=== PATIENT | male | born 1960 ===

== ENCOUNTER 2025-02-16 19:09 | Outpatient (BNV) | payer MEDICARE, SELFPAY | END 2025-02-20 19:43 | PROVIDERS: Admitting Provider Psychiatry & Neurology Psychiatry; Visit Provider Radiology Neuroradiology | DX: M25.522 Pain in left elbow (principal); M79.632 Pain in left forearm; W19.XXXA Unspecified fall, initial encounter | CPT/HCPCS: 73070; 73090 ==

== ENCOUNTER 2025-02-16 19:09 | Outpatient (BNV) | payer MEDICARE, SELFPAY | END 2025-02-23 14:12 | PROVIDERS: Admitting Provider Psychiatry & Neurology Psychiatry; Visit Provider Radiology Vascular & Interventional Radiology | DX: S99.922A Unspecified injury of left foot, initial encounter (principal); M79.672 Pain in left foot | CPT/HCPCS: 73630 ==

== ENCOUNTER 2025-02-16 19:09 | Inpatient (IN) | payer OTHER, SELFPAY ==
--- NOTE | ~2025-02-16 | XR_ITS ---
CLINICAL HISTORY: Trauma and pain 3 view left foot Comparison: None Findings: No acute fracture or dislocation is identified. Incidental note is made of an os peroneum. Soft tissue structures appear intact. IMPRESSION: No acute osseous abnormality is identified. This document has been electronically signed by: Michelle Burns on 02/25/2025 08:24:25
--- NOTE | ~2025-02-16 | XR_ITS ---
CLINICAL HISTORY: PAIN LEFT KNEE Left knee, 2 views COMPARISON: None FINDINGS: No acute fracture. No dislocation. No effusion. Upper patellar enthesophyte. Unremarkable soft tissues. IMPRESSION: No acute findings. This document has been electronically signed by: Erlin River MD on 02/21/2025 04:06:00
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
--- NOTE | ~2025-02-16 | XR_ITS ---
CLINICAL HISTORY: ulnar fx, tranfer pt, no records --- Additional Notes or Special Instructions: to b e done in AM 3 view left elbow Comparison: None Findings: Mid to distal left ulnar diaphyseal fracture again noted. No significant arthritic change or erosions. No joint effusion. No radiopaque foreign body. IMPRESSION: Mid to distal left ulnar diaphyseal fracture noted. No elbow joint effusion or additional fracture. This document has been electronically signed by: Eleazar Glynn MD on 02/17/2025 08:07:09
--- NOTE | ~2025-02-16 | XR_ITS ---
CLINICAL HISTORY: ulnar fx, no records, transfer pt --- Additional Notes or Special Instructions: to be done in AM 2 view left forearm Comparison: None Findings: Minimally displaced, minimally comminuted mid to distal left ulnar fracture. No significant arthritic change. No radiopaque foreign body. IMPRESSION: Minimally displaced left ulnar fracture. This document has been electronically signed by: Eleazar Glynn MD on 02/17/2025 08:04:30
--- NOTE | ~2025-02-16 | XR_ITS ---
CLINICAL HISTORY: s p fall pt has current cast 3 view left elbow Comparison: X-rays of the left forearm from 02/17/2025 Findings: Redemonstration ulna mid diaphysis fracture in the field of view. Effusion imaged elbow is nonspecific and partly obscured by cast artifact. No dislocation of the imaged left elbow. No displaced radius fracture in the field of view. IMPRESSION: 1. No bony bridging callus of the known ulnar fracture as of yet. 2. No dislocation of the imaged elbow, with effusion present This document has been electronically signed by: Temo Guadarrama MD on 02/20/2025 21:33:59
--- NOTE | ~2025-02-16 | XR_ITS ---
CLINICAL HISTORY: s p fall cast in place 2 view left forearm Comparison: X-rays of the left forearm from 02/17/2025 Findings: No significant change in ulna diaphysis fracture and/or alignment. No dislocation of the imaged wrist or imaged elbow, with mild osteoarthritis present. Soft tissue detail of the additional bone detail obscured by plaster cast artifacts. IMPRESSION: 1. No significant change in ulna diaphysis fracture compared to 02/17/2025. 2. No dislocation of the imaged wrist or imaged elbow. This document has been electronically signed by: Temo Guadarrama MD on 02/20/2025 21:34:55
--- NOTE | ~2025-02-16 | XR_ITS ---
CLINICAL HISTORY: PAIN FEMUR Left Femur, 2 views, 2 images COMPARISON: None FINDINGS: No acute fracture. No dislocation. Unremarkable soft tissues. IMPRESSION: No acute findings. This document has been electronically signed by: Erlin River MD on 02/21/2025 04:07:49
[2025-02-16 19:34] VITALS: BP 129/78; PULSE 88; RESP 14; TEMP 36.5; O2SAT 99
[2025-02-16 20:00] VITALS: BP 129/78; PULSE 88; RESP 18; TEMP 36.5; O2SAT 99
[2025-02-16 20:07] VITALS: BMI 21.9
[2025-02-16] MEDS: Divalproex Sodium ER 500 MG TAB.ER.24H 1500 MG PO (21:08)
[2025-02-16] MEDS: buPROPion HCL 100 MG TABLET PO (21:08)
[2025-02-16] MEDS: Docusate Sodium 100 MG CAPSULE PO (21:08)
--- NOTE | 2025-02-17 01:22 | P.EN_ITS ---
Event Note Date of Service: 02/17/25 Event Note: Patient is a 64-year-old male admitted to adult psych, hospitalist consult placed for medical evaluation. Patient was sleeping and nursing staff requested that patient be allowed to sleep and not woken up for consult. They did share photos of his left forearm and reports that he has a nondisplaced left ulnar fracture however the x-ray was not included in his transfer paperwork. There is significant swelling in the medial aspect of the left forearm. We will order x- ray of left elbow and left forearm for tomorrow morning for confirmation that this is truly nondisplaced and there are no additional fractures. The patient has a splint, no cast. Remainder of consultation unable to be performed at this time Time Spent With Patient Time: Total time managing care of this patient today ____ minutes.
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
[2025-02-17 07:35] VITALS: BP 146/84; PULSE 84; RESP 18; TEMP 36.4; O2SAT 98
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
[2025-02-17] MEDS: hydroCHLOROthiazide 12.5 MG TABLET PO (09:34)
[2025-02-17] MEDS: buPROPion HCL 100 MG TABLET PO ×2 (09:35→21:02)
[2025-02-17] MEDS: Cholecalciferol (Vitamin D3) 25 MCG TABLET 50 MCG PO (09:35)
[2025-02-17] MEDS: amLODIPine Besylate 5 MG TABLET PO (09:35)
[2025-02-17] MEDS: Multivitamin TABLET 1 TAB PO (09:35)
[2025-02-17] MEDS: Benztropine Mesylate 0.5 MG TABLET PO (09:35)
[2025-02-17] MEDS: Docusate Sodium 100 MG CAPSULE PO ×2 (09:35→21:02)
[2025-02-17] MEDS: metFORMIN HCl 500 MG TABLET PO ×2 (09:36→17:09)
[2025-02-17 09:39] VITALS: BP 164/74; PULSE 85; RESP 16; TEMP 36.6; O2SAT 100
[2025-02-17] MEDS: Acetaminophen 325 MG TABLET 650 MG PO ×2 (09:49→21:14)
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
[2025-02-17] MEDS: traMADoL HCL 50 MG TABLET PO ×2 (14:40→21:02)
[2025-02-17 20:04] VITALS: BP 132/65; PULSE 82; RESP 18; TEMP 37.1; O2SAT 97
[2025-02-17] MEDS: Divalproex Sodium ER 500 MG TAB.ER.24H 1500 MG PO (21:02)
[2025-02-17] MEDS: traZODone HCL 50 MG TABLET PO (21:15)
[2025-02-18 07:47] LABS: Glucose, Whole Blood 98 mg/dL (60-115)
[2025-02-18 08:00] VITALS: BP 132/65; PULSE 83; RESP 14; TEMP 36.9; O2SAT 98
[2025-02-18] MEDS: traMADoL HCL 50 MG TABLET PO (08:42)
[2025-02-18] MEDS: Multivitamin TABLET 1 TAB PO (08:43)
[2025-02-18] MEDS: hydroCHLOROthiazide 12.5 MG TABLET PO (08:43)
[2025-02-18] MEDS: buPROPion HCL 100 MG TABLET PO ×2 (08:43→20:21)
[2025-02-18] MEDS: Benztropine Mesylate 0.5 MG TABLET PO (08:43)
[2025-02-18] MEDS: Cholecalciferol (Vitamin D3) 25 MCG TABLET 50 MCG PO (08:43)
[2025-02-18] MEDS: Docusate Sodium 100 MG CAPSULE PO ×2 (08:43→20:21)
[2025-02-18] MEDS: metFORMIN HCl 500 MG TABLET PO ×2 (08:43→18:35)
[2025-02-18] MEDS: amLODIPine Besylate 5 MG TABLET PO (08:43)
[2025-02-18 12:15] VITALS: BP 116/71; PULSE 103; RESP 15; O2SAT 98
--- NOTE | 2025-02-18 12:32 | PC.NURSE ---
Doug Mon had a fall at 1215. When he was trying to sit he slid to the floor and missed the desk chair. He said he is unhurt from the fall, no head strike. We placed him on 1:1. Dr Mon and Babar CHOWDARY informed.
--- NOTE | 2025-02-18 12:38 | PC.NURSE ---
Pt was seen by PT yesterday and educated on the use of a pao walker. However, per PT there is no pao walker available in hospital for patient use.
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
--- NOTE | 2025-02-18 13:08 | P.EN_ITS ---
Event Note Date of Service: 02/18/25 Event Note: Pt admitted to [facility] unit with falling room witnessed by his roommate. Pt was attempting to sit in his chair to eat his lunch when he missed the seat, and slid to the floor, landing on right side. Denies head strike which was corroborated by roommate. Pt denies any significant musculoskeletal pain above baseline. Denies hip, knee, or leg pain. No headache or acute vision changes. Physical exam benign without any perceived tenderness to hips, knees, or shoulders bilaterally. Pt deconditioned and with generalized weakness, but strength appears preserved and similar to prior examination. No reduced ROM of hips or knees bilaterally. Pt has already been seen and evaluated by Physical therapy who have pt use pao walker while on the unit which has been ordered and hopefully will arrived sometime earlier in the next week. Pt currently on one -to-one. Given benign physical examination and ROS, no imaging or additional workup indicated at this time. Time Spent With Patient Time: Total time managing care of this patient today ____ minutes.
[2025-02-18] MEDS: traMADoL HCL 50 MG TABLET 75 MG PO (15:30)
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
[2025-02-18 20:00] VITALS: BP 129/65; PULSE 83; RESP 16; TEMP 36.9; O2SAT 97
[2025-02-18] MEDS: Divalproex Sodium ER 500 MG TAB.ER.24H 1500 MG PO (20:21)
[2025-02-19 07:40] VITALS: BP 156/91; PULSE 89; RESP 14; TEMP 36.6; O2SAT 99
[2025-02-19 07:43] LABS: Glucose, Whole Blood 91 mg/dL (60-115)
[2025-02-19 07:53] LABS: Estimated Average Glucose 123 mg/dL; Hemoglobin A1c % 5.9 % (<6.0); Total Hemoglobin (HGBA1C) 2668.7055 umol/L
[2025-02-19 08:05] LABS: Cholesterol 127 mg/dL (<200); Creatinine Clr Calc Pharmacy 95.1; Estimated Glomerular Filt Rate > 60; HDL Cholesterol 46 mg/dL (>40); LDL Cholesterol Calculated 68 mg/dL (<100); Triglycerides 66 mg/dL (<150)
[2025-02-19 08:20] LABS: Free T4 (Free Thyroxine) 1.14 ng/dL (0.71-1.85); Thyroid Stimulating Hormone 1.64 uIU/mL (0.32-4.0)
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
[2025-02-19 08:33] LABS: Folate 6.4 ng/mL (> or = 4.0); Vitamin B12 519 pg/mL (200-900)
[2025-02-19] MEDS: traMADoL HCL 50 MG TABLET 75 MG PO ×3 (08:53→21:02)
[2025-02-19] MEDS: metFORMIN HCl 500 MG TABLET PO ×2 (08:54→17:02)
[2025-02-19] MEDS: Docusate Sodium 100 MG CAPSULE PO ×2 (08:55→20:42)
[2025-02-19] MEDS: amLODIPine Besylate 5 MG TABLET PO (08:55)
[2025-02-19] MEDS: Cholecalciferol (Vitamin D3) 25 MCG TABLET 50 MCG PO (08:55)
[2025-02-19] MEDS: Benztropine Mesylate 0.5 MG TABLET PO (08:55)
[2025-02-19] MEDS: Multivitamin TABLET 1 TAB PO (08:55)
[2025-02-19] MEDS: buPROPion HCL 100 MG TABLET PO ×2 (08:55→20:42)
[2025-02-19 08:56] VITALS: BP 150/90
[2025-02-19] MEDS: hydroCHLOROthiazide 12.5 MG TABLET PO (08:56)
--- NOTE | 2025-02-19 10:18 | PC.NURSE ---
Per [facility] worker Ping flannery received his prolixin Dec on 02/02/25 from his nurse ( TAYLOR) at [facility]. The [facility] phone number is [phone]
--- NOTE | 2025-02-19 10:41 | HE.PHANOTE ---
RE: LAST DOSE OF PROLIXIN PER NURSE FERDINAND ARREAGA IN M3...Per Doug [facility]'s [facility] worker Ping flannery received his prolixin Dec on 01/2325 from his nurse ( TAYLOR) at [facility]. The [facility] phone number is [phone].
--- NOTE | 2025-02-19 13:54 | HO.PSYCHPN ---
Subjective Subjective Date of Service: 02/19/25 Reason For Visit: Unspec schizophrenia, unspec cocaine related d/o Interim History: calm, cooperative, awake, alert. pleasant. denies any Sx. denies SI/HI/AVH. some pain, arm casted this morning by ortho. per staff, 1:1 due to fall risk. denies dep/anx/SI/HI. fell yesterday. pain 1-2. Mental Status Exam Mental Status Exam Narrative: in bed, did not get up. cooperative. no PMA/PMR. speech nml rate, amount, loudness, latency. decreased prosody. thoughts linear and logical. affect constricted, normo-intense, non-labile. mood OK. no SI/SIBI/HI/AVH. Diagnostics Vital Signs (24Hr): Vital Signs - 24 hr 02/18/25 20:00 02/19/25 07:40 02/19/25 08:56 Temperature 98.4 F 97.9 F Pulse Rate 83 89 Respiratory Rate 16 14 Blood Pressure 129/65 156/91 H 150/90 H Pulse Oximetry 97 99 Oxygen Delivery Method Room Air Room Air BMI result Body Mass Index 21.9 Labs 02/19/25 07:33 Labs: Laboratory Results - last 48 hr 02/18/25 02/19/25 02/19/25 07:43 07:29 07:33 Creatinine 0.79 Estim Creat Clear Calc 95.1 Estimated GFR > 60 POC Glucose 98 91 Estimat Average Glucose 123 Hemoglobin A1c % 5.9 Triglycerides 66 Cholesterol 127 LDL Cholesterol, Calc 68 HDL Cholesterol 46 Vitamin B12 519 Folate 6.4 TSH 1.64 Free T4 1.14 Medications Medications Current Medications Acetaminophen (Acetaminophen 325 Mg Tablet) 650 mg PO Q6H PRN PRN Reason: Headache/Pain, Scale 1-10 Last Admin: 02/17/25 21:14 Dose: 650 mg Al Hydroxide/Mg Hydroxide (Magnesium Hydrox/Alum Hydrox 30 Ml Oral.Susp) 30 ml PO Q6H PRN PRN Reason: Heartburn/Nausea Amlodipine Besylate (Amlodipine Besylate 5 Mg Tablet) 5 mg PO DAILY [facility]; Protocol Last Admin: 02/19/25 08:55 Dose: 5 mg Benztropine Mesylate (Benztropine Mesylate 0.5 Mg Tablet) 0.5 mg PO DAILY [facility] Last Admin: 06/09/25 08:55 Dose: 0.5 mg Bupropion HCl (Bupropion Hcl 100 Mg Tablet) 100 mg PO BID [facility] Last Admin: 02/19/25 08:55 Dose: 100 mg Divalproex Sodium (Divalproex Sodium Er 500 Mg Tab.Er.24h) 1,500 mg PO BEDTIME [facility] Last Admin: 02/18/25 20:21 Dose: 1,500 mg Docusate Sodium (Docusate Sodium 100 Mg Capsule) 100 mg PO BID [facility] Last Admin: 02/19/25 08:55 Dose: 100 mg Fluphenazine Decanoate (Fluphenazine Decanoate 25 Mg/Ml 5 Ml Vial) 125 mg IM Q21D [facility] Hydrochlorothiazide (Hydrochlorothiazide 12.5 Mg Tablet) 12.5 mg PO DAILY [facility]; Protocol Last Admin: 02/19/25 08:56 Dose: 12.5 mg Hydroxyzine HCl (Hydroxyzine Hcl 25 Mg Tablet) 25 mg PO Q6H PRN PRN Reason: mild anxiety Magnesium Hydroxide (Milk Of Magnesia 30 Ml Oral.Susp) 30 ml PO DAILY PRN PRN Reason: Constipation Metformin HCl (Metformin Hcl 500 Mg Tablet) 500 mg PO BIDWM [facility] Last Admin: 02/19/25 08:54 Dose: 500 mg Multivitamins/Vitamin C (Multivitamin Tablet) 1 tab PO DAILY [facility] Last Admin: 02/19/25 08:55 Dose: 1 tab Nicotine Polacrilex (Nicotine Polacrilex 2 Mg Gum) 4 mg BUCCAL Q2H PRN PRN Reason: Nicotine Cravings Senna (Sennosides 8.6 Mg Tablet) 17.2 mg PO DAILY PRN PRN Reason: Constipation Tramadol HCl (Tramadol Hcl 50 Mg Tablet) 75 mg PO Q4H PRN PRN Reason: arm pain Last Admin: 02/19/25 08:53 Dose: 75 mg Trazodone HCl (Trazodone Hcl 50 Mg Tablet) 50 mg PO BEDTIME MRX1 PRN PRN Reason: Insomnia Last Admin: 02/17/25 21:15 Dose: 50 mg Vitamin D (Cholecalciferol (Vitamin D3) 25 Mcg Tablet) 50 mcg PO DAILY [facility] Last Admin: 02/19/25 08:55 Dose: 50 mcg Allergies Allergies Allergy/AdvReac Type Severity Reaction Status Date / Time No Known Allergies Allergy Verified 02/16/25 20:09 Assessment & Plan Assessment & Plan (1) Fracture of left ulna, shaft: Status: Acute Code(s): S52.A - Unspecified fracture of shaft of left ulna, initial encounter for closed fracture Assessment and Plan: Reviewed the case with Dr. Pisano. We will treat the patient nonoperatively with a long-arm cast for no longer than 3 weeks. Patient should have x-rays through the cast in 1-2 weeks to check alignment; if alignment stable continue with long-arm cast until week 3 At that time , return for cast off and x-rays- if fracture is healing he can transitioned to a short-arm cast versus long forearm brace for 2-3 weeks. Cast should remain intact at all times and dry. Any concerns as far as pain, swelling, discomfort with cast please contact Orthopedics for cast check and possible cast change. (2) Schizophrenia: Status: Acute Code(s): F20.9 - Schizophrenia, unspecified (3) Cocaine use disorder: Status: Acute Code(s): F14.10 - Cocaine abuse, uncomplicated Plan 02/17: restart home medications regimen. trend BP and modify anti-HTN regimen as indicated. tramadol 50 q6h PRN Fx pain. referrals on discharge. 02/18: pain remains /; increase tramadol to 75 Q4H PRN (NTE 4 doses per 24H). fell; 1:1 for fall risk. ortho consult for fracture. 02/19: awake, alert, calm. denies Sx. arm casted. pain persists, abated with tramadol increase. continue current mgmt. Reason for continued inpatient stay Substantial Risk for: inability to function and rapid decompensation Time Spent With Patient Time: Total time managing care of this patient today __25__ minutes.
[2025-02-19 15:46] VITALS: BP 150/90
[2025-02-19 20:00] VITALS: BP 159/78; PULSE 98; RESP 18; TEMP 36.9; O2SAT 99
[2025-02-19] MEDS: Divalproex Sodium ER 500 MG TAB.ER.24H 1500 MG PO (20:42)
[2025-02-20] MEDS: hydrOXYzine HCL 25 MG TABLET PO ×2 (02:21→20:23)
[2025-02-20] MEDS: traMADoL HCL 50 MG TABLET 75 MG PO ×3 (02:21→18:07)
[2025-02-20] MEDS: Acetaminophen 325 MG TABLET 650 MG PO ×4 (02:21→23:45)
[2025-02-20 07:47] LABS: Glucose, Whole Blood 97 mg/dL (60-115)
[2025-02-20 07:57] VITALS: BP 154/93; PULSE 89; RESP 16; TEMP 36.6; O2SAT 99
[2025-02-20] MEDS: Cholecalciferol (Vitamin D3) 25 MCG TABLET 50 MCG PO (08:26)
[2025-02-20] MEDS: hydroCHLOROthiazide 12.5 MG TABLET PO (08:27)
[2025-02-20] MEDS: buPROPion HCL 100 MG TABLET PO ×2 (08:27→20:23)
[2025-02-20] MEDS: Benztropine Mesylate 0.5 MG TABLET PO (08:27)
[2025-02-20] MEDS: Multivitamin TABLET 1 TAB PO (08:28)
[2025-02-20] MEDS: amLODIPine Besylate 5 MG TABLET PO (08:28)
[2025-02-20] MEDS: metFORMIN HCl 500 MG TABLET PO ×2 (08:28→17:30)
[2025-02-20] MEDS: Docusate Sodium 100 MG CAPSULE PO ×2 (08:28→20:23)
[2025-02-20 10:31] VITALS: BP 154/93; PULSE 89; O2SAT 99
[2025-02-20 17:20] VITALS: BP 164/87; PULSE 85; RESP 16; TEMP 36.4; O2SAT 98
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
[2025-02-20 20:00] VITALS: BP 174/89; PULSE 90; RESP 18; TEMP 36.9; O2SAT 99
--- NOTE | 2025-02-20 20:21 | HO.PSYCHPN ---
Subjective Subjective Date of Service: 02/20/25 Reason For Visit: Unspec schizophrenia, unspec cocaine related d/o Interim History: remains on 1:1 for inability to ambulate on his own and for fall risk. feeling OK, no questions, complaints or requests. per staff, denies Sx. blunted. taking meds. slept well. Mental Status Exam Mental Status Exam Narrative: in bed, did not get up. cooperative. no PMA/PMR. speech nml rate, amount, loudness, latency. decreased prosody. thoughts linear and logical. affect constricted, normo-intense, non-labile. mood OK. no SI/SIBI/HI/AVH. Diagnostics Vital Signs (24Hr): Vital Signs - 24 hr 02/20/25 07:57 02/20/25 10:31 02/20/25 17:20 Temperature 97.8 F 97.5 F Pulse Rate 89 89 85 Respiratory Rate 16 16 Blood Pressure 154/93 H 154/93 H 164/87 H Pulse Oximetry 99 99 98 Oxygen Delivery Method Room Air Room Air BMI result Body Mass Index 21.9 Labs 02/19/25 07:33 Labs: Laboratory Results - last 48 hr 02/19/25 02/19/25 02/20/25 07:29 07:33 07:39 Creatinine 0.79 Estim Creat Clear Calc 95.1 Estimated GFR > 60 POC Glucose 91 97 Estimat Average Glucose 123 Hemoglobin A1c % 5.9 Triglycerides 66 Cholesterol 127 LDL Cholesterol, Calc 68 HDL Cholesterol 46 Vitamin B12 519 Folate 6.4 TSH 1.64 Free T4 1.14 Medications Medications Current Medications Acetaminophen (Acetaminophen 325 Mg Tablet) 650 mg PO Q6H PRN PRN Reason: Headache/Pain, Scale 1-10 Last Admin: 02/20/25 18:07 Dose: 650 mg Al Hydroxide/Mg Hydroxide (Magnesium Hydrox/Alum Hydrox 30 Ml Oral.Susp) 30 ml PO Q6H PRN PRN Reason: Heartburn/Nausea Amlodipine Besylate (Amlodipine Besylate 5 Mg Tablet) 5 mg PO DAILY [facility]; Protocol Last Admin: 02/20/25 08:28 Dose: 5 mg Benztropine Mesylate (Benztropine Mesylate 0.5 Mg Tablet) 0.5 mg PO DAILY [facility] Last Admin: 02/20/25 08:27 Dose: 0.5 mg Bupropion HCl (Bupropion Hcl 100 Mg Tablet) 100 mg PO BID [facility] Last Admin: 02/20/25 08:27 Dose: 100 mg Divalproex Sodium (Divalproex Sodium Er 500 Mg Tab.Er.24h) 1,500 mg PO BEDTIME [facility] Last Admin: 02/19/25 20:42 Dose: 1,500 mg Docusate Sodium (Docusate Sodium 100 Mg Capsule) 100 mg PO BID [facility] Last Admin: 02/20/25 08:28 Dose: 100 mg Fluphenazine Decanoate (Fluphenazine Decanoate 25 Mg/Ml 5 Ml Vial) 125 mg IM Q21D [facility] Hydrochlorothiazide (Hydrochlorothiazide 12.5 Mg Tablet) 12.5 mg PO DAILY [facility]; Protocol Last Admin: 02/20/25 08:27 Dose: 12.5 mg Hydroxyzine HCl (Hydroxyzine Hcl 25 Mg Tablet) 25 mg PO Q6H PRN PRN Reason: mild anxiety Last Admin: 02/20/25 02:21 Dose: 25 mg Magnesium Hydroxide (Milk Of Magnesia 30 Ml Oral.Susp) 30 ml PO DAILY PRN PRN Reason: Constipation Metformin HCl (Metformin Hcl 500 Mg Tablet) 500 mg PO BIDWM [facility] Last Admin: 02/20/25 17:30 Dose: 500 mg Multivitamins/Vitamin C (Multivitamin Tablet) 1 tab PO DAILY [facility] Last Admin: 02/20/25 08:28 Dose: 1 tab Nicotine Polacrilex (Nicotine Polacrilex 2 Mg Gum) 4 mg BUCCAL Q2H PRN PRN Reason: Nicotine Cravings Senna (Sennosides 8.6 Mg Tablet) 17.2 mg PO DAILY PRN PRN Reason: Constipation Tramadol HCl (Tramadol Hcl 50 Mg Tablet) 75 mg PO Q4H PRN PRN Reason: arm pain Last Admin: 02/20/25 18:07 Dose: 75 mg Trazodone HCl (Trazodone Hcl 50 Mg Tablet) 50 mg PO BEDTIME MRX1 PRN PRN Reason: Insomnia Last Admin: 02/17/25 21:15 Dose: 50 mg Vitamin D (Cholecalciferol (Vitamin D3) 25 Mcg Tablet) 50 mcg PO DAILY [facility] Last Admin: 02/20/25 08:26 Dose: 50 mcg Allergies Allergies Allergy/AdvReac Type Severity Reaction Status Date / Time No Known Allergies Allergy Verified 02/16/25 20:09 Assessment & Plan Assessment & Plan (1) Fracture of left ulna, shaft: Status: Acute Code(s): S52.A - Unspecified fracture of shaft of left ulna, initial encounter for closed fracture Assessment and Plan: Reviewed the case with Dr. Pisano. We will treat the patient nonoperatively with a long-arm cast for no longer than 3 weeks. Patient should have x-rays through the cast in 1-2 weeks to check alignment; if alignment stable continue with long-arm cast until week 3 At that time , return for cast off and x-rays- if fracture is healing he can transitioned to a short-arm cast versus long forearm brace for 2-3 weeks. Cast should remain intact at all times and dry. Any concerns as far as pain, swelling, discomfort with cast please contact Orthopedics for cast check and possible cast change. (2) Schizophrenia: Status: Acute Code(s): F20.9 - Schizophrenia, unspecified (3) Cocaine use disorder: Status: Acute Code(s): F14.10 - Cocaine abuse, uncomplicated Plan 02/17: restart home medications regimen. trend BP and modify anti-HTN regimen as indicated. tramadol 50 q6h PRN Fx pain. referrals on discharge. 02/18: pain remains 04/22; increase tramadol to 75 Q4H PRN (NTE 4 doses per 24H). fell; 1:1 for fall risk. ortho consult for fracture. 02/19: awake, alert, calm. denies Sx. arm casted. pain persists, abated with tramadol increase. continue current mgmt. 02/20: becoming consistently hypertensive. increase norvasc to 10 mg daily and HCTZ to 25 mg daily. stable psychiatrically. continue current psychiatric mgmt. Reason for continued inpatient stay Substantial Risk for: inability to function Time Spent With Patient Time: Total time managing care of this patient today __25__ minutes.
[2025-02-20] MEDS: Divalproex Sodium ER 500 MG TAB.ER.24H 1500 MG PO (20:22)
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
[2025-02-21 08:00] VITALS: BP 174/83; PULSE 95; RESP 17; TEMP 36.9; O2SAT 99
[2025-02-21 08:05] VITALS: BP 185/92; PULSE 96; RESP 14; TEMP 37.2; O2SAT 98
[2025-02-21 08:15] LABS: Glucose, Whole Blood 120 mg/dL (60-115)
[2025-02-21] MEDS: amLODIPine Besylate 10 MG TABLET PO (08:26)
[2025-02-21] MEDS: buPROPion HCL 100 MG TABLET PO ×2 (08:27→20:52)
[2025-02-21] MEDS: Benztropine Mesylate 0.5 MG TABLET PO (08:27)
[2025-02-21] MEDS: hydroCHLOROthiazide 25 MG TABLET PO (08:27)
[2025-02-21] MEDS: Docusate Sodium 100 MG CAPSULE PO ×2 (08:27→20:52)
[2025-02-21] MEDS: Multivitamin TABLET 1 TAB PO (08:27)
[2025-02-21] MEDS: metFORMIN HCl 500 MG TABLET PO ×2 (08:27→17:23)
[2025-02-21] MEDS: Cholecalciferol (Vitamin D3) 25 MCG TABLET 50 MCG PO (08:28)
[2025-02-21 09:30] VITALS: BP 178/85; PULSE 95
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
[2025-02-21] MEDS: traMADoL HCL 50 MG TABLET 75 MG PO (14:38)
[2025-02-21] MEDS: Acetaminophen 325 MG TABLET 975 MG PO ×2 (14:39→20:51)
--- NOTE | 2025-02-21 15:04 | HO.WOUND ---
Wound Consult: Initial 64yr old?male admitted to [facility] on 02/16/25- See progress notes and H&P for detailed history.? Wound consult placed for Right Grider and Left Torso abrasion.? Patient agreeable to assessment and photo documentation.? Right Grider Etiology: ?Traumatic injury ?Present on Admission Wound Bed: two open areas noted - full thicknes tissue loss some slough noted to wound bed Drainage / Odor: serosang noted on dressing Edges: ? rolled Bia wound: ?maceration noted and slight swelling noted - No Induration, Fluctuance or Warmth noted Pain: denies pain Goals of Treatment: ? Moisture management with Durafiber Left Torso noted for superficial abrasion secondary from fall on 02/20/25. There is no induration no swelling and no hematoma noted. The skin is resurfacing small scabs noted. Patient denies pain and or tenderness. no s/s of infection. The site will benefit from moist wound healing with vaseline and ABD pad to protect from friction. Recommendations: When applicable maintain blood glucose levels per Providers order. Left Torso - Routine cleansing. Apply Vaseline twice daily may cover with Abd pad to protect fro friction and provide comfort. Right Grider - Cleanse with NS moist gauze, pat dry. Apply skin prep to periwound. Lightly pack wound bed with durafiber AG cover with foam dressing or dry dressing and change every 3 days. Re-consult wound care Nurse for wound deterioration or wound changes.
[2025-02-21] MEDS: Enoxaparin Sodium 40 MG/0.4 ML SYRINGE SUBCUT (16:14)
[2025-02-21] MEDS: Omeprazole 20 MG CAPSULE.DR PO (16:14)
[2025-02-21] MEDS: Ibuprofen 600 MG TABLET PO (17:22)
[2025-02-21 19:45] VITALS: BP 121/80; PULSE 103; RESP 16; TEMP 37.4; O2SAT 97
[2025-02-21] MEDS: Divalproex Sodium ER 500 MG TAB.ER.24H 1500 MG PO (20:51)
[2025-02-21] MEDS: hydrOXYzine HCL 25 MG TABLET PO (20:52)
[2025-02-22] MEDS: Omeprazole 20 MG CAPSULE.DR PO (06:22)
[2025-02-22 07:00] VITALS: BMI 22.4
[2025-02-22 07:47] LABS: MANUAL DIFF FLAG NO
[2025-02-22 07:54] LABS: Basophils Percent Auto 0.2 % (0-2); Eosinophils Absolute Auto 0.1 X10*3/uL (0.0-0.4); Eosinophils Percent Auto 1.7 % (0-4); Hematocrit 30.5 % (42.0-52.0); Hemoglobin 9.9 g/dl (14.0-18.0); Imm Gran Abs Auto 0.09 X10*3/uL (0.00-0.03); Imm Gran Pct Auto 1.4 % (0.0-0.4); Lymphocytes Absolute Auto 2.2 X10*3/uL (1.2-4.9); Lymphocytes Percent Auto 34.3 % (20-40); Mean Corpuscular HGB Conc 32.5 g/dl (31.0-36.0); Mean Corpuscular Hemoglobin 27.7 pg (27.0-33.0); Mean Corpuscular Volume 85.2 fL (80.0-98.0); Mean Platelet Volume 9.5 fL (9.4-12.4); Monocytes Absolute Auto 0.8 X10*3/uL (0.1-1.2); Monocytes Percent Auto 11.7 % (2-11); Neutrophils Absolute Auto 3.3 x10*3/uL (2.0-8.3); Neutrophils Percent Auto 50.7 % (45-73); Platelet Count 317 X10*3/uL (160-400); Red Blood Count 3.58 X10*6/uL (4.60-5.80); Red Cell Distribution Width 14.9 % (11.0-16.0); White Blood Count 6.5 X10*3/uL (4.8-10.8)
[2025-02-22 08:00] VITALS: BP 156/88; PULSE 93; TEMP 36.8; O2SAT 96
[2025-02-22 08:07] LABS: Alanine Aminotransferase 26 U/L (0-40); Albumin Level 4.1 g/dL (3.5-5.0); Alkaline Phosphatase 74 U/L (39-117); Anion Gap 11 (12-20); Aspartate Amino Transferase 22 U/L (5-37); Bilirubin Total 0.5 mg/dL (0.0-1.0); Blood Urea Nitrogen 14 mg/dL (9-16); C Reactive Protein 1.67 mg/dL (< or = 0.50); Calcium 9.3 mg/dL (8.4-10.2); Carbon Dioxide 32 mmol/L (22-29); Chloride 99 mmol/L (96-108); Creatinine Clr Calc Pharmacy 102.9; Estimated Glomerular Filt Rate > 60; Glucose Random 100 mg/dL (60-115); Potassium 4.2 mmol/L (3.3-5.1); Sodium 138 mmol/L (135-145); Total Protein 6.6 g/dL (6.5-8.0)
[2025-02-22 08:16] LABS: Glucose, Whole Blood 98 mg/dL (60-115)
[2025-02-22] MEDS: Acetaminophen 325 MG TABLET 975 MG PO ×3 (08:38→21:12)
[2025-02-22] MEDS: Benztropine Mesylate 0.5 MG TABLET PO (08:40)
[2025-02-22] MEDS: Multivitamin TABLET 1 TAB PO (08:40)
[2025-02-22] MEDS: Docusate Sodium 100 MG CAPSULE PO ×2 (08:40→21:12)
[2025-02-22 08:41] VITALS: BP 156/88
[2025-02-22] MEDS: hydroCHLOROthiazide 25 MG TABLET PO (08:41)
[2025-02-22] MEDS: Cholecalciferol (Vitamin D3) 25 MCG TABLET 50 MCG PO (08:42)
[2025-02-22 08:43] VITALS: BP 156/88
[2025-02-22] MEDS: amLODIPine Besylate 10 MG TABLET PO (08:43)
[2025-02-22 08:44] LABS: Erythrocyte Sedimentation Rate 22 MM/HR (0-15)
[2025-02-22] MEDS: buPROPion HCL 100 MG TABLET PO ×2 (08:44→21:12)
[2025-02-22] MEDS: metFORMIN HCl 500 MG TABLET PO ×2 (08:44→17:05)
[2025-02-22] MEDS: Ibuprofen 600 MG TABLET PO ×3 (08:44→17:05)
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
[2025-02-22 10:31] VITALS: BP 156/88
[2025-02-22] MEDS: Enoxaparin Sodium 40 MG/0.4 ML SYRINGE SUBCUT (15:19)
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
[2025-02-22 20:15] VITALS: BP 141/67; PULSE 98; RESP 14; TEMP 37.1; O2SAT 95
[2025-02-22] MEDS: Divalproex Sodium ER 500 MG TAB.ER.24H 1500 MG PO (21:13)
[2025-02-23] MEDS: traZODone HCL 50 MG TABLET PO (03:22)
[2025-02-23] MEDS: Omeprazole 20 MG CAPSULE.DR PO (06:40)
[2025-02-23 07:30] VITALS: BP 167/80; PULSE 96; RESP 14; TEMP 36.9; O2SAT 98
[2025-02-23] MEDS: Acetaminophen 325 MG TABLET 975 MG PO ×3 (09:05→20:29)
[2025-02-23] MEDS: Cholecalciferol (Vitamin D3) 25 MCG TABLET 50 MCG PO (09:06)
[2025-02-23] MEDS: buPROPion HCL 100 MG TABLET PO ×2 (09:06→20:29)
[2025-02-23] MEDS: Docusate Sodium 100 MG CAPSULE PO (09:06)
[2025-02-23] MEDS: Ibuprofen 600 MG TABLET PO ×3 (09:06→17:34)
[2025-02-23 09:07] VITALS: BP 140/80
[2025-02-23] MEDS: hydroCHLOROthiazide 25 MG TABLET PO (09:07)
[2025-02-23] MEDS: Multivitamin TABLET 1 TAB PO (09:07)
[2025-02-23] MEDS: metFORMIN HCl 500 MG TABLET PO ×2 (09:07→17:34)
[2025-02-23] MEDS: Benztropine Mesylate 0.5 MG TABLET PO (09:07)
[2025-02-23] MEDS: fluPHENAZine decanoate 25 MG/ML 5 ML VIAL 50 MG IM (11:35)
[2025-02-23 13:46] VITALS: BP 140/80
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
--- NOTE | 2025-02-23 15:57 | PM.EVENT ---
Event Note Date of Service: 02/23/25 Event Note: Patient reporting left foot pain, x-ray taken, pending read. Follow up with hospitalist team if x-rays positive. Consult orthopedics if evidence of fracture Time Spent With Patient Time: Total time managing care of this patient today ____ minutes.
[2025-02-23] MEDS: Enoxaparin Sodium 40 MG/0.4 ML SYRINGE SUBCUT (16:09)
[2025-02-23] MEDS: traMADoL HCL 50 MG TABLET 75 MG PO (19:54)
[2025-02-23 20:10] VITALS: BP 174/82; PULSE 89; RESP 16; TEMP 37.4; O2SAT 99
[2025-02-23] MEDS: Divalproex Sodium ER 500 MG TAB.ER.24H 1500 MG PO (20:27)
[2025-02-23] MEDS: amLODIPine Besylate 10 MG TABLET PO (20:28)
[2025-02-23 23:29] VITALS: BP 155/85; PULSE 98; RESP 16
[2025-02-24] MEDS: Omeprazole 20 MG CAPSULE.DR PO (06:34)
[2025-02-24 07:38] LABS: Glucose, Whole Blood 144 mg/dL (60-115)
[2025-02-24 08:06] VITALS: BP 174/90; PULSE 109; RESP 14; TEMP 36.9; O2SAT 98
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
[2025-02-24] MEDS: hydroCHLOROthiazide 25 MG TABLET PO (08:55)
[2025-02-24] MEDS: Multivitamin TABLET 1 TAB PO (08:56)
[2025-02-24] MEDS: Ibuprofen 600 MG TABLET PO ×3 (08:56→17:04)
[2025-02-24] MEDS: Benztropine Mesylate 0.5 MG TABLET PO (08:56)
[2025-02-24] MEDS: buPROPion HCL 100 MG TABLET PO ×2 (08:56→20:29)
[2025-02-24] MEDS: Docusate Sodium 100 MG CAPSULE PO ×2 (08:56→20:29)
[2025-02-24] MEDS: metFORMIN HCl 500 MG TABLET PO ×2 (08:56→17:04)
[2025-02-24] MEDS: Cholecalciferol (Vitamin D3) 25 MCG TABLET 50 MCG PO (08:56)
[2025-02-24] MEDS: Acetaminophen 325 MG TABLET 975 MG PO ×3 (08:57→20:29)
[2025-02-24 08:59] LABS: MANUAL DIFF FLAG NO
[2025-02-24 09:02] LABS: Basophils Percent Auto 0.3 % (0-2); Eosinophils Absolute Auto 0.1 X10*3/uL (0.0-0.4); Eosinophils Percent Auto 1.2 % (0-4); Hematocrit 33.1 % (42.0-52.0); Hemoglobin 10.8 g/dl (14.0-18.0); Imm Gran Abs Auto 0.07 X10*3/uL (0.00-0.03); Lymphocytes Absolute Auto 1.9 X10*3/uL (1.2-4.9); Lymphocytes Percent Auto 26.6 % (20-40); Mean Corpuscular HGB Conc 32.6 g/dl (31.0-36.0); Mean Corpuscular Hemoglobin 27.8 pg (27.0-33.0); Mean Corpuscular Volume 85.1 fL (80.0-98.0); Mean Platelet Volume 9.2 fL (9.4-12.4); Monocytes Absolute Auto 0.9 X10*3/uL (0.1-1.2); Monocytes Percent Auto 11.8 % (2-11); Neutrophils Absolute Auto 4.3 x10*3/uL (2.0-8.3); Neutrophils Percent Auto 59.1 % (45-73); Platelet Count 356 X10*3/uL (160-400); Red Blood Count 3.89 X10*6/uL (4.60-5.80); Red Cell Distribution Width 15.3 % (11.0-16.0); White Blood Count 7.3 X10*3/uL (4.8-10.8)
[2025-02-24 09:31] LABS: Anion Gap 15 (12-20); Blood Urea Nitrogen 12 mg/dL (9-16); Calcium 10.1 mg/dL (8.4-10.2); Carbon Dioxide 29 mmol/L (22-29); Chloride 100 mmol/L (96-108); Creatinine Clr Calc Pharmacy 116.6; Estimated Glomerular Filt Rate > 60; Glucose Random 138 mg/dL (60-115); Potassium 4.3 mmol/L (3.3-5.1); Sodium 140 mmol/L (135-145)
[2025-02-24 10:26] VITALS: BP 151/84; PULSE 97
[2025-02-24] MEDS: Enoxaparin Sodium 40 MG/0.4 ML SYRINGE SUBCUT (15:23)
[2025-02-24 20:00] VITALS: BP 138/70; PULSE 99; RESP 14; TEMP 37.4; O2SAT 98
[2025-02-24] MEDS: amLODIPine Besylate 10 MG TABLET PO (20:29)
[2025-02-24] MEDS: Divalproex Sodium ER 500 MG TAB.ER.24H 1500 MG PO (20:29)
--- NOTE | 2025-02-24 20:39 | PC.NURSE ---
Bandage on lower back washed and Vaseline applied. Covered with non stick bandage.
[2025-02-25] MEDS: hydrOXYzine HCL 25 MG TABLET PO (01:55)
[2025-02-25] MEDS: traZODone HCL 50 MG TABLET PO (01:55)
[2025-02-25] MEDS: traMADoL HCL 50 MG TABLET 75 MG PO (05:34)
[2025-02-25] MEDS: Omeprazole 20 MG CAPSULE.DR PO (05:35)
[2025-02-25 08:00] VITALS: BP 138/82; PULSE 98; TEMP 36.7; O2SAT 99
[2025-02-25 08:13] LABS: Glucose, Whole Blood 165 mg/dL (60-115)
[2025-02-25] MEDS: Multivitamin TABLET 1 TAB PO (08:44)
[2025-02-25] MEDS: buPROPion HCL 100 MG TABLET PO (08:45)
[2025-02-25] MEDS: Cholecalciferol (Vitamin D3) 25 MCG TABLET 50 MCG PO (08:45)
[2025-02-25] MEDS: hydroCHLOROthiazide 25 MG TABLET PO (08:46)
[2025-02-25] MEDS: Acetaminophen 325 MG TABLET 975 MG PO ×3 (08:46→20:42)
[2025-02-25] MEDS: Benztropine Mesylate 0.5 MG TABLET PO (08:47)
[2025-02-25] MEDS: Ibuprofen 600 MG TABLET PO ×3 (08:48→17:13)
[2025-02-25] MEDS: metFORMIN HCl 500 MG TABLET PO ×2 (08:48→17:13)
[2025-02-25] MEDS: Docusate Sodium 100 MG CAPSULE PO ×2 (08:48→20:44)
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
[2025-02-25 14:22] VITALS: BP 141/84
[2025-02-25] MEDS: Enoxaparin Sodium 40 MG/0.4 ML SYRINGE SUBCUT (14:57)
[2025-02-25 20:00] VITALS: BP 167/93; PULSE 92; RESP 18; TEMP 37.3; O2SAT 98
[2025-02-25] MEDS: Divalproex Sodium ER 500 MG TAB.ER.24H 1500 MG PO (20:43)
[2025-02-25] MEDS: amLODIPine Besylate 10 MG TABLET PO (20:43)
[2025-02-25] MEDS: Mirtazapine 15 MG TABLET PO (20:44)
[2025-02-25 22:06] VITALS: BP 186/90; PULSE 97
--- NOTE | 2025-02-25 22:16 | PM.EVENT ---
Event Note Date of Service: 02/25/25 Event Note: Nurse reported elevated BP. Noted elevated trends of blood pressure recently. Will add hydralazine p.o. Time Spent With Patient Time: Total time managing care of this patient today ____ minutes.
[2025-02-25] MEDS: hydrALAZINE HCl 25 MG TABLET PO (22:39)
[2025-02-25 23:28] VITALS: BP 166/84; PULSE 97
[2025-02-26] VITALS (7 sets, daily range): BP systolic 138–151; BP diastolic 73–97; PULSE 103–114; RESP 16; TEMP 37.1–37.7; O2SAT 97–99
[2025-02-26] MEDS: Omeprazole 20 MG CAPSULE.DR PO (06:14)
[2025-02-26 08:02] LABS: Glucose, Whole Blood 210 mg/dL (60-115)
[2025-02-26] MEDS: buPROPion HCl XL 150 MG TAB.ER.24H PO (08:25)
[2025-02-26] MEDS: hydroCHLOROthiazide 25 MG TABLET PO (08:25)
[2025-02-26] MEDS: Multivitamin TABLET 1 TAB PO (08:26)
[2025-02-26] MEDS: metFORMIN HCl 500 MG TABLET PO ×2 (08:26→16:34)
[2025-02-26] MEDS: Acetaminophen 325 MG TABLET 975 MG PO (08:26)
[2025-02-26] MEDS: Cholecalciferol (Vitamin D3) 25 MCG TABLET 50 MCG PO (08:26)
[2025-02-26] MEDS: Ibuprofen 600 MG TABLET PO ×2 (08:26→13:06)
[2025-02-26] MEDS: Docusate Sodium 100 MG CAPSULE PO ×2 (08:26→20:59)
[2025-02-26] MEDS: hydrALAZINE HCl 25 MG TABLET PO ×4 (08:27→20:58)
[2025-02-26] MEDS: Benztropine Mesylate 0.5 MG TABLET PO (08:47)
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
[2025-02-26] MEDS: Enoxaparin Sodium 40 MG/0.4 ML SYRINGE SUBCUT (14:54)
[2025-02-26] MEDS: Divalproex Sodium ER 500 MG TAB.ER.24H 1500 MG PO (20:58)
[2025-02-26] MEDS: amLODIPine Besylate 10 MG TABLET PO (20:59)
[2025-02-26] MEDS: Mirtazapine 30 MG TABLET PO (20:59)
[2025-02-27] MEDS: hydrOXYzine HCL 25 MG TABLET PO (03:04)
[2025-02-27] MEDS: Omeprazole 20 MG CAPSULE.DR PO (06:01)
[2025-02-27 07:34] VITALS: BP 167/76; PULSE 116; RESP 16; TEMP 37.7; O2SAT 99
[2025-02-27 07:35] LABS: Glucose, Whole Blood 163 mg/dL (60-115)
[2025-02-27] MEDS: hydroCHLOROthiazide 25 MG TABLET PO (08:39)
[2025-02-27] MEDS: Cholecalciferol (Vitamin D3) 25 MCG TABLET 50 MCG PO (08:39)
[2025-02-27] MEDS: buPROPion HCl XL 150 MG TAB.ER.24H PO (08:39)
[2025-02-27 08:40] VITALS: BP 165/75
[2025-02-27] MEDS: Docusate Sodium 100 MG CAPSULE PO (08:40)
[2025-02-27] MEDS: metFORMIN HCl 500 MG TABLET PO (08:40)
[2025-02-27] MEDS: Multivitamin TABLET 1 TAB PO (08:40)
[2025-02-27] MEDS: hydrALAZINE HCl 25 MG TABLET PO (08:40)
[2025-02-27] MEDS: Benztropine Mesylate 0.5 MG TABLET PO (08:40)
[2025-02-27] MEDS: traMADoL HCL 50 MG TABLET PO (08:45)
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
== END 2025-02-27 11:30 | DRG 885 ==
PROVIDERS: Nurse Practitioner Family; Admitting Provider Psychiatry & Neurology Psychiatry; Visit Provider Psychiatry & Neurology Psychiatry
DX: F20.9 Schizophrenia, unspecified (principal); R45.851 Suicidal ideations; S52.602A Unspecified fracture of lower end of left ulna, initial encounter for closed fracture; F14.10 Cocaine abuse, uncomplicated; F17.210 Nicotine dependence, cigarettes, uncomplicated; D64.9 Anemia, unspecified; M25.562 Pain in left knee; M25.552 Pain in left hip; Y09 Assault by unspecified means; I10 Essential (primary) hypertension; E11.9 Type 2 diabetes mellitus without complications; Z71.6 Tobacco abuse counseling; Z79.84 Long term (current) use of oral hypoglycemic drugs; Z79.899 Other long term (current) drug therapy
CPT/HCPCS: 29065; 36415; 73070; 73080; 73090; 73502; 73552; 73560; 73630; 80048; 80053; 80061; 82565; 82607; 82746; 82947; 83036; 84439; 84443; 85025; 85652; 86140; 97110; 97116; 97161; 97530; J1650; J2680

== ENCOUNTER 2025-02-16 19:09 | Outpatient (BNV) | payer MEDICARE, SELFPAY | END 2025-02-21 02:35 | PROVIDERS: Admitting Provider Psychiatry & Neurology Psychiatry; Visit Provider Radiology Diagnostic Radiology | DX: M25.552 Pain in left hip (principal); R52 Pain, unspecified; M25.562 Pain in left knee | CPT/HCPCS: 73502; 73552; 73560 ==

== ENCOUNTER 2025-02-16 19:09 | Outpatient (BNV) | payer MEDICARE, SELFPAY | END 2025-02-17 07:45 | PROVIDERS: Admitting Provider Psychiatry & Neurology Psychiatry; Visit Provider Radiology Vascular & Interventional Radiology | DX: S52.602A Unspecified fracture of lower end of left ulna, initial encounter for closed fracture (principal) | CPT/HCPCS: 73080; 73090 ==

== ENCOUNTER → 2025-02-16 19:09 | Outpatient (BNV) | payer MEDICARE, SELFPAY | PROVIDERS: Admitting Provider Psychiatry & Neurology Psychiatry; Visit Provider Physician Assistant | DX: Z00.8 Encounter for other general examination (principal) | CPT/HCPCS: 99222; 99499 ==

== ENCOUNTER → 2025-02-16 19:09 | Outpatient (BNV) | payer OTHER, SELFPAY | PROVIDERS: Admitting Provider Psychiatry & Neurology Psychiatry; Visit Provider Psychiatry & Neurology Psychiatry | DX: F20.9 Schizophrenia, unspecified (principal); F14.10 Cocaine abuse, uncomplicated; S52.202A Unspecified fracture of shaft of left ulna, initial encounter for closed fracture | CPT/HCPCS: 90792; 99231; 99232 ==

== ENCOUNTER → 2025-02-16 19:09 | Outpatient (BNV) | payer MEDICARE, SELFPAY | PROVIDERS: Admitting Provider Psychiatry & Neurology Psychiatry; Visit Provider Physician Assistant | DX: S52.202A Unspecified fracture of shaft of left ulna, initial encounter for closed fracture (principal) | CPT/HCPCS: 25530; 99222; 99499 ==

== ENCOUNTER 2025-03-08 09:00 | Outpatient (REF) | payer MEDICARE, SELFPAY ==
--- NOTE | ~2025-03-08 | XR_ITS ---
EXAMINATION: XR FOREARM, LEFT CLINICAL INFORMATION: S52.A - Unspecified fracture of shaft of left ulna, initial encounter... COMPARISON: February 20, 2025 TECHNIQUE: AP and lateral views of the left forearm were obtained. FINDINGS: Overlying cast obscures bony details. There is a transverse fracture at the junction of middle third distal third diaphysis of the ulna. There is faint periosteal new bone formation. There is no change in alignment There is offset distal to the fracture in the radial direction of 1 cortex width. XR/XR forearm LT 2V IMPRESSION: Early evidence of healing. Electronically signed by: Prince Jennings MD 03/08/2025 11:24 AM EDT
== END 2025-03-08 09:01 | disposition home or self-care (01) ==
LOC: HO.HOSX 09:00
PROVIDERS: Visit Provider Physician Assistant
DX: S52.202A Unspecified fracture of shaft of left ulna, initial encounter for closed fracture (principal)
CPT/HCPCS: 73090; 99212

== ENCOUNTER 2025-03-08 10:50 | Outpatient (AMB) | payer MEDICARE, SELFPAY ==
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
== END 2025-03-08 11:48 | disposition home or self-care (01) ==
LOC: HO.HOS 10:50
PROVIDERS: Visit Provider Physician Assistant
DX: S52.202A Unspecified fracture of shaft of left ulna, initial encounter for closed fracture (principal)
CPT/HCPCS: 99024

== ENCOUNTER → 2025-03-08 10:53 | Outpatient (BNV) | payer MEDICARE, SELFPAY | PROVIDERS: Visit Provider Radiology Diagnostic Radiology | DX: M79.632 Pain in left forearm (principal); S52.202A Unspecified fracture of shaft of left ulna, initial encounter for closed fracture | CPT/HCPCS: 73090 ==

== ENCOUNTER 2025-03-22 06:48 | Outpatient (REF) | payer MEDICARE, SELFPAY ==
--- NOTE | ~2025-03-22 | XR_ITS ---
EXAMINATION: XR FOREARM 2 VIEWS LEFT HISTORY: S52.90XA - Unspecified fracture of unspecified forearm, initial encounter... COMPARISON: Comparison is made with the prior examination dated 03/08/2025. FINDINGS: AP and lateral views of the left forearm are submitted. Osseous mineralization is normal. The fiberglass cast has been removed. Again seen is a comminuted fracture of the mid to distal ulna. There is greater callus formation noted, consistent with healing. The fracture lines remain visible. The generalized portions of the wrist and elbow joint spaces are preserved. The soft tissues are unremarkable. XR/XR forearm LT 2V IMPRESSION: Healing comminuted fracture of the mid to distal left ulna. Electronically signed by: Ciaran Gtz MD 03/22/2025 01:11 PM EDT
== END 2025-03-22 06:49 | disposition home or self-care (01) ==
LOC: HO.HOSX 06:48
PROVIDERS: Visit Provider Physician Assistant
DX: S52.202D Unspecified fracture of shaft of left ulna, subsequent encounter for closed fracture with routine healing (principal); R20.2 Paresthesia of skin; R20.0 Anesthesia of skin; W21 Striking against or struck by sports equipment; Z79.899 Other long term (current) drug therapy; Z79.84 Long term (current) use of oral hypoglycemic drugs; Z79.01 Long term (current) use of anticoagulants
CPT/HCPCS: 73090; 99212

== ENCOUNTER 2025-03-22 12:42 | Outpatient (AMB) | payer MEDICARE, SELFPAY ==
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
== END 2025-03-22 14:05 | disposition home or self-care (01) ==
PROVIDERS: Visit Provider Physician Assistant
DX: S52.202A Unspecified fracture of shaft of left ulna, initial encounter for closed fracture (principal)
CPT/HCPCS: 99024

== ENCOUNTER → 2025-03-22 12:45 | Outpatient (BNV) | payer MEDICARE, SELFPAY | PROVIDERS: Visit Provider Radiology Diagnostic Radiology | DX: S52.602D Unspecified fracture of lower end of left ulna, subsequent encounter for closed fracture with routine healing (principal) | CPT/HCPCS: 73090 ==

== ENCOUNTER 2025-04-13 08:22 | Outpatient (REF) | payer MEDICARE, SELFPAY ==
--- NOTE | ~2025-04-13 | XR_ITS ---
EXAMINATION: XR FOREARM, LEFT CLINICAL INFORMATION: S52.90XA - Unspecified fracture of unspecified forearm, initial encounte... COMPARISON: March 22, 2025 TECHNIQUE: AP and lateral views of the left forearm were obtained. FINDINGS: Again seen is a fracture through the mid left ulnar diaphysis. There is maturation of the callus across the fracture with persistently visible fracture line. XR/XR forearm LT 2V IMPRESSION: Maturing callus across the mid diaphyseal fracture of the ulna with persistent lucency and small step-off. Electronically signed by: Prince Jennings MD 04/13/2025 12:00 PM EDT
== END 2025-04-13 08:23 | disposition home or self-care (01) ==
LOC: HO.HOSX 08:22
PROVIDERS: Visit Provider Physician Assistant
DX: S52.202D Unspecified fracture of shaft of left ulna, subsequent encounter for closed fracture with routine healing (principal)
CPT/HCPCS: 29075; 73090; 99212

== ENCOUNTER → 2025-04-13 10:58 | Outpatient (BNV) | payer MEDICARE, SELFPAY | PROVIDERS: Visit Provider Radiology Diagnostic Radiology | DX: S52.202A Unspecified fracture of shaft of left ulna, initial encounter for closed fracture (principal) | CPT/HCPCS: 73090 ==

== ENCOUNTER 2025-04-13 11:22 | Outpatient (AMB) | payer MEDICARE, SELFPAY ==
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
== END 2025-04-13 12:23 | disposition home or self-care (01) ==
LOC: HO.HOS 11:22
PROVIDERS: Visit Provider Physician Assistant
DX: S52.202A Unspecified fracture of shaft of left ulna, initial encounter for closed fracture (principal)
CPT/HCPCS: 29075; 99024

== ENCOUNTER 2025-05-25 08:23 | Outpatient (REF) | payer MEDICARE, SELFPAY ==
--- OUTSIDE RECORDS SUMMARY | 2025-05-25 08:48 | XMS_ITS | Clinical Summary ---
Author Organization [facility] Address [address] [place] [address] Care Team Providers Care Steward/Stewardess Tourist Class Name Role Phone Ambreen Gaspar DO Primary Care Provider [phone] Junaid Horne Unavailable [phone] Allergies No known active allergies Medications No known medications Encounters Date Type Department Care Team Description 04/25/2025 1:53 AM EDT - 04/25/2025 5:00 AM EDT Emergency [facility] Emergency Department [address] [place] [id number] Silas Guerrero MD Treut, Peter W, MD Sprain of right sternoclavicular joint, initial encounter (Primary Dx) Discharge Disposition: Home or Self Care 04/25/2025 Results Follow-Up [facility] Emergency Department [address] [place] [id number] Eneida Martinez RN XR Clavicle Right 04/25/2025 Travel from Last 3 Months Social History Tobacco Use Types Packs/Day Years Used Date Smoking Tobacco: Never Assessed Humiliation, Afraid, Rape, and Kick questionnair e Answer Date Recorded Within the last year, have y ou been afraid of your partner or ex-partner? Patient declined 04/25/2025 Emotionally Abused Not on file 04/25/2025 Physically Abused Not on file 04/25/2025 Sexually Abused Not on file 04/25/2025 Overall Financial Resource Strain (CARDIA) Answe r Date Recorded How hard is it for you to pa y for the very basics like food, housing, medical care, and heating? Patient declined 04/25/2025 Hunger Vital Sign Answer Date Recorded Within the past 12 months, y ou worried that your food would run out before you got the money to buy more. Patient declined Ran Out of Food in the Last Year Not on file 04/25/2025 PRAPARE - Transportation Answer Date Re corded In the past 12 months, has l ack of transportation kept you from medical appointments or from getting medications? Patient declined 04/25/2025 In the past 12 months, has l ack of transportation kept you from meetings, work, or from getting things needed for daily living? Patient declined 04/25/2025 Housing Stability Vital Sign Answer Noman e Recorded In the last 12 months, was t here a time when you were not able to pay the mortgage or rent on time? Patient declined 04/25/20 25 Number of Times Moved in the Last Year Not on fi le 04/25/2025 At any time in the past 12 m [facility], were you homeless or living in a skilled nursing (including now)? Patient declined 04/25/[address] [facility] Utilities Answer Date Recorded In the past 12 months has th e [email or web address], gas, oil, or water [employer] threatened to shut off services in your home? Patient declined 04/25/2025 Food Insecurity Answer Date Recorded Within the past 12 months, y ou worried that your food would run out before you got the money to buy more. Patient declined Ran Out of Food in the Last Year Not on file 04/25/2025 Intimate Partner Violence Answer Date R ecorded Emotionally Abused Not on file 04/25/2025 Within the last year, have y ou been afraid of your partner or ex-partner? Patient declined 04/25/2025 Physically Abused Not on file 04/25/2025 Sexually Abused Not on file 04/25/2025 Housing Stability Answer Date Recorded Unstable Housing in the Last Year Not on file 04/25/2025 In the last 12 months, was t here a time when you were not able to pay the mortgage or rent on time? Patient declined 04/25/20 25 Number of Places Lived in the Last Year Not on f ile 04/25/2025 Sex and Gender Information Value Date Recorded Sex Assigned at Male 04/25/2025 2:16 AM EDT Legal Sex Male 9:42 PM EDT Gender Identity Male 04/25/2025 2:16 AM EDT Sexual Orientation Not on file Last Filed Vital Signs Vital Sign Reading Time Taken Comments Blood Pressure 141/90 04/25/2025 4:40 AM EDT Pulse 95 04/25/2025 4:40 AM EDT Temperature 36.6 C (97.9 F) 04/25/2025 1:55 AM EDT Respiratory Rate 18 04/25/2025 4:40 AM EDT Oxygen Saturation 97% 04/25/2025 4:40 AM EDT Inhaled Oxygen Concentration - - Weight 75.8 kg (167 lb) 04/25/2025 1:57 AM EDT Height 182.9 cm (6') 04/25/2025 1:57 AM EDT Body Mass Index 22.65 04/25/2025 1:57 AM EDT Plan of Treatment Health Maintenance Due Date Last Done Comments Lipid Panel 1958 PSA 1958 Prostate Cancer Screening 1958 SDM 1958 Depression Screening 1962 Hepatitis C Screening 1976 DTaP,Tdap,and Td Vaccines (1 - Tdap) 1977 CT Colonography 2003 Colonoscopy 2003 Colorectal Cancer Screening 2003 FIT 2003 FOBT 2003 Multitarget Stool DNA (Cologuard) 2003 Sigmoidoscopy 2003 Pneumococcal Vaccine (1 of 1 - PCV) 2008 Zoster Vaccine (1 of 2) 2008 COVID-19 Vaccine (1 - 2023-2 5 season) 2025 Influenza Vaccine (#1) 2025 Blood Pressure 04/25/2026 04/25/2025 Meningococcal B Vaccines Aged Out No longer eligible based on patient's age to complete this topic Meningococcal Vaccines Aged Out No lo nger eligible based on patient's age to complete this topic Procedures Procedure Name Priority Date/Time Associated Diagnosis Comments XR CLAVICLE RIGHT STAT 04/25/2025 3:1 0 AM EDT from Last 3 Months Results * XR Clavicle Right (04/25/2025 3:10 AM EDT) Anatomical Region Laterality Modality Shoulder Right Digital Radiogra phy 04/25/2025 10:5 0 AM EDT Impressions 04/25/2025 10:53 AM EDT Narrowing/degenerative change right acromioclavicular joint without acute abnormality visible Signed By: Sintia Evans on 04/25/2025 10:53 AM on [email or web address] Narrative 04/25/2025 10:53 AM EDT STUDY: Right clavicle, 2 views INDICATIONS: No one day new onset pain and swelling COMPARISON: None FINDINGS: 2 views of the right clavicle show irregularity narrowing at the acromioclavicular joint which does not have an acute appearance. There is some osteophytosis from the acromion. The medial clavicle is normal in appearance and no abnormalities seen at the right lung apex. There is calcification adjacent to the superolateral right humeral head at the expected insertion site of the rotator cuff tendon. Note that the contralateral distal clavicle is not visible for comparison Procedure Note Sintia Evans MD - 04/25/2025 STUDY: Right clavicle, 2 views INDICATIONS: No one day new onset pain and swelling COMPARISON: None FINDINGS: 2 views of the right clavicle show irregularity narrowing at the acromioclavicular joint which does not have an acute appearance. There is some osteophytosis from the acromion. The medial clavicle is normal in appearance and no abnormalities seen at the right lung apex. There is calcification adjacent to the superolateral right humeral head at the expected insertion site of the rotator cuff tendon. Note that the contralateral distal clavicle is not visible for comparison IMPRESSION: Narrowing/degenerative change right acromioclavicular joint without acute abnormality visible Signed By: Sintia Evans on 04/25/2025 10:53 AM on [email or web address] Silas Guerrero MD IMG DIAGNOSTIC IMAGING [facility] RIVERA Final Result from Last 3 Months Insurance MEDICARE ADVANTAGE MEDICARE MEDICARE [facility] Care [address] [address] Advance Directives Documents on File Type Date Recorded Patient Cemetery Warden Expl anation MOLST/POLST 04/26/2025 3:48 PM Care Teams Steward/Stewardess Tourist Class Relationship Specialty Start Date End Date Ambreen Gaspar DO [address] [place] [phone] PCP - General Internal Medicine 04/23/25 Junaid Horne [address] [place] [address] PCP - Insurance Assigned PCP 04/25/25
--- OUTSIDE RECORDS SUMMARY | 2025-05-25 08:48 | XMS_ITS | Encounter Summary ---
Author Organization [facility] Address [address] [place] [id number] Care Team Providers Care Telephonic Nurse Name Role Phone Ambreen Gaspar DO Primary Care Provider [phone] Junaid Horne Unavailable [phone] Encounter Details Date Type Department Care Team (Late st Contact Info) Description 04/25/2025 Results Follow-Up [facility] Emergency Department [address] [place] [address] Eneida Martinez RN XR Clavicle Right Social History Tobacco Use Types Packs/Day Years [...] any time in the past [address] [facility], were you homeless or living in a fpc (including now)? Patient declined 04/25/2025 [facility] Utilities Answer Date Recorded In the past 12 months has th e [employer], gas, oil, or water [employer] threatened to shut off services in your [...] AM EDT Sexual Orientation Not on file documented as of this encounter Plan of Treatment Not on file documented as of this encounter Visit Diagnoses Not on filedocumented in this encounter Care Teams Telephonic Nurse Relationship Specialty Start Date End Date Ambreen Gaspar DO [address] [place] [address] PCP - General Internal Medicine 04/23/25 Junaid Horne [address] [place] [address] PCP - Insurance Assigned PCP 04/25/25 documented as of this encounter
== END 2025-05-25 08:24 | disposition home or self-care (01) ==
LOC: HO.HOSX 08:23
PROVIDERS: Visit Provider Physician Assistant
DX: Z13.89 Encounter for screening for other disorder (principal)